=== PATIENT | female | born 1960 | race Caucasian/White ===

== ENCOUNTER → 2020-10-03 | Outpatient (CLI) | payer BC ==
[~2020-10-03] MED LIST: BACLOFEN10 MG PO; IBU800 MG PO; OMNICEF 300 MG300 MG PO; ZOFRAN ODT 4 MG4 MG PO
[2020-10-03 10:28] LABS: HEMOGLOBIN 15.1 gm/dl (12.3-15.3); RED BLOOD COUNT 4.62 M/UL (4.00-5.10); WHITE BLOOD COUNT 8.2 K/UL (4.5-11.0)
[2020-10-03 10:51] LABS: BUN/CREATININE RATIO 13 (0-10)
[2020-10-04 08:12] LABS: THYROXINE (T4) 6.4 ug/dL (4.5-12.0)
== END ==
LOC: LAB 08:46
PROVIDERS: Nurse Practitioner Family
DX: E78.5 Hyperlipidemia, unspecified (principal); R53.83 Other fatigue; E55.9 Vitamin D deficiency, unspecified; M79.672 Pain in left foot
CPT/HCPCS: 36415; 73610; 73630; 80053; 80061; 84436; 84443; 84480; 85025

== ENCOUNTER → 2020-11-07 | Outpatient (CLI) | payer BC | LOC: LAB 09:27 | DX: E55.9 Vitamin D deficiency, unspecified (principal) | CPT/HCPCS: 36415 ==

== ENCOUNTER 2020-11-26 08:48 | Emergency (ER) | payer BC ==
[2020-11-26 09:35] LABS: HEMOGLOBIN 14.7 gm/dl (12.3-15.3); RED BLOOD COUNT 4.47 M/UL (4.00-5.10); WHITE BLOOD COUNT 13.9 K/UL (4.5-11.0)
[2020-11-26 10:19] LABS: BUN/CREATININE RATIO 10 (0-10)
[2020-11-26] MEDS ORDERED: ZOFRAN ODT 4 MG4 MG PO (12:56)
[2020-11-26] MEDS ORDERED: IBU800 MG PO (12:56)
[2020-11-26] MEDS ORDERED: OMNICEF 300 MG300 MG PO (12:56)
[2020-11-26] MEDS ORDERED: BACLOFEN10 MG PO (13:09)
== END 2020-11-26 13:18 | disposition home or self-care (01) ==
LOC: ER1 08:48
PROVIDERS: Nurse Practitioner
DX: N39.0 Urinary tract infection, site not specified (principal); F17.210 Nicotine dependence, cigarettes, uncomplicated
CPT/HCPCS: 80053; 81001; 82550; 82553; 83605; 83690; 84484; 85025; 93005; 96374; 99284; J1885